=== PATIENT | female | born 1985 | race Caucasian/White ===

== ENCOUNTER 2017-12-11 07:49 | Emergency (ER) | payer MEDICAID ==
[2017-12-11 07:55] VITALS: RESP 18; O2SAT 100
[2017-12-11 08:42] LABS: BASO % 0.4 % (0.0-2.0); EOS # 0.3 K/uL (0.0-0.7); EOS % 2.8 % (0.0-4.0); HEMOGLOBIN 12.1 g/dL (11.0-16.0); LYMPH # 2.5 K/uL (1.0-4.3); MEAN CELL VOLUME 88.2 fL (81.0-99.0); MEAN CORPUSCULAR HEMOGLOBIN 30.2 pg (27.0-31.0); MEAN CORPUSCULAR HGB CONC 34.2 g/dL (33.0-37.0); MEAN PLATELET VOLUME 8.4 fL (7.2-11.7); MONO # 0.6 K/uL (0.0-0.8); MONO % 5.9 % (0.0-10.0); NEUT # 6.2 K/uL (1.8-7.0); NEUT % 64.9 % (50.0-75.0); RED CELL DISTRIBUTION WIDTH 13.2 % (11.5-14.5); WHITE BLOOD COUNT 9.6 K/uL (4.8-10.8)
[2017-12-11 09:29] LABS: BLOOD UREA NITROGEN 8 mg/dL (7-17); CALCIUM 8.8 mg/dl (8.6-10.4); GFR NON-AFRICAN AMERICAN > 60
[2017-12-11 09:31] LABS: ALB/GLOB RATIO 1.2 (1.0-2.1); ALBUMIN 4.5 g/dL (3.5-5.0); ALT/SGPT 17 U/L (9-52); AST/SGOT 41 U/L (14-36)
[2017-12-11 09:49] LABS: PROGESTERONE 2.78 ng/mL
--- NOTE | 2017-12-11 10:53 | US ---
Date of service: 12/11/2017 PROCEDURE: OB Pelvic Ultrasound HISTORY: vag bleeding in LMP: 10/20/2017 which suggest gestational age of 7 weeks 3 days. COMPARISON: Transabdominal and transvaginal pelvic ultrasound 07/31/2013 FINDINGS: UTERUS: Gestational sac: No gestational sac identified. Instead, heterogeneous endometrium identified measuring 14.1 mm greatest thickness myometrium is remarkable for a small pedunculated fibroid anteriorly at the fundus measure 1.1 x 1.2 x 1.2 cm. Uterus measures 9.6 x 4.8 x 5.8 cm. Normal in size, anteverted. CERVIX: Measures 3.1 cm. Long and closed. No cervical abnormality seen. RIGHT OVARY: Measures 3.1 x 2.4 x 3.7 cm. No mass lesion. Normal flow. LEFT OVARY: Measures 3.7 x 2.4 x 3.4 cm. No solid mass. Normal flow. Multiple small follicles are identified at the left ovary FREE FLUID: None. OTHER FINDINGS: None. IMPRESSION: No intrauterine gestation is identified with heterogeneous appearing endometrium measuring 14.1 mm thickness. Based on LMP suggesting 7 week 3 day gestation, pattern likely suggests failure of gestation. No definite ectopic gestation appreciable. Follow-up serial serum beta HCG analysis is advised. Consider follow-up transvaginal pelvic ultrasound in 1 week in the chance that in early viable but nonvisualized intrauterine gestation is present.
--- NOTE | 2017-12-11 11:03 | C.PDOC ---
History Of Present Illness 32-year-old female G5P, with 3 miscarriages,, presents to the emergency department with complaints of vaginal bleeding, spotting since yesterday. Patient notes mild abdominal cramping that has been progressively worsening. She denies any nausea/vomiting, fever, chills, or any other associated symptoms. No other complaints at this time. Time Seen by Provider: 12/11/17 08:06 Chief Complaint (Nursing): Female Genitourinary History Per: Patient History/Exam Limitations: no limitations Past Medical History Reviewed: Historical Data, Nursing Documentation, Vital Signs Vital Signs: Last Vital Signs Temp 98.3 F 12/11/17 07:51 Pulse 83 12/11/17 07:51 Resp 18 12/11/17 07:51 BP 119/72 12/11/17 07:51 Pulse Ox 100 12/11/17 07:51 Family History: States: No Known Family Hx - Social History Hx Tobacco Use: Yes Hx Alcohol Use: Yes Hx Substance Use: No - Immunization History Hx Tetanus Toxoid Vaccination: Yes Hx Influenza Vaccination: No Hx Pneumococcal Vaccination: No Review Of Systems Constitutional: Negative for: Fever, Chills Cardiovascular: Negative for: Chest Pain Respiratory: Negative for: Shortness of Breath Gastrointestinal: Positive for: Abdominal Pain. Negative for: Nausea, Vomiting Genitourinary: Positive for: Vaginal Bleeding Physical Exam - Physical Exam Appears: Non-toxic, No Acute Distress Skin: Warm, Dry, No Rash Head: Atraumatic Eye(s): bilateral: Normal Inspection, PERRL, EOMI Nose: Normal Oral Mucosa: Moist Lips: Normal Appearing Neck: Normal ROM Cardiovascular: Rhythm Regular, No Murmur Respiratory: Normal Breath Sounds, No Accessory Muscle Use Gastrointestinal/Abdominal: Soft, No Tenderness Back: Normal Inspection Extremity: Normal ROM, No Deformity Neurological/Psych: Oriented x3, Normal Speech ED Course And Treatment - Laboratory Results Result Diagrams: 12/11/17 08:37 12/11/17 09:08 O2 Sat by Pulse Oximetry: 100 Pulse Ox Interpretation: Normal (RA) Medical Decision Making Medical Decision Making: discussed case with Dr. Queen and okay to discharge patient home He will follow up with patient tomorrow in office. Disposition Discussed With : Adama Queen Doctor Will See Patient In The: Office Counseled Patient/Family Regarding: Studies Performed, Diagnosis, Need For Followup - Disposition Referrals: Adama Queen MD [Staff Provider] - Disposition: HOME/ ROUTINE Disposition Time: 11:01 Condition: STABLE Additional Instructions: follow up with Dr. Queen within 2 days call to make an appointment continue your home medications return to ER if symptoms worsens or progress Instructions: Miscarriage (DC) Forms: General Discharge Instructions, Work/School/Gym Excuse, [facility] ([place]) - Clinical Impression Clinical Impression: Miscarriage - Scribe Statement The provider has reviewed the documentation as recorded by the Scribe (Thelma Aponte) Provider Attestation: All medical record entries made by the Scribe were at my direction and personally dictated by me. I have reviewed the chart and agree that the record accurately reflects my personal performance of the history, physical exam, medical decision making, and the department course for this patient. I have also personally directed, reviewed, and agree with the discharge instructions and disposition.
[2017-12-11 11:31] VITALS: BP 109/65; PULSE 77; TEMP 99.1
[2017-12-11 11:40] LABS: SQUAMOUS EPITHIAL 2 /hpf (0-5); URINE BACTERIA OCC (<OCC); URINE BILIRUBIN NEGATIVE (NEGATIVE); URINE BLOOD 3+ (NEGATIVE); URINE COLOR Red (YELLOW); URINE GLUCOSE (UA) NORMAL (Normal); URINE LEUKOCYTE ESTERASE TRACE Leu/uL (Negative); URINE PROTEIN NEGATIVE (NEGATIVE); URINE UROBILINOGEN NORMAL mg/dL (0.2-1.0)
[2017-12-11 11:43] LABS: URINE CLARITY SLHAZY (Clear)
== END 2017-12-11 11:32 | disposition home or self-care (01) ==
LOC: C.ER 07:49
DX: O03.9 Complete or unspecified spontaneous abortion without complication (principal)